=== PATIENT | female | born 1940 | race Hispanic/Latino ===

== ENCOUNTER 2017-05-31 08:18 | Outpatient (CLI) | payer MEDICARE ==
--- NOTE | 2017-05-31 08:52 | XRay Report ---
Standing views of the left knee: Pain. There are spurs involving the medial joint articulation with narrowing of the joint space. The articular margins appear generally preserved. There is a superior patellar spur. The knee appears relatively aligned. The bones are well-mineralized. There is no swelling and no effusion. 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
== END 2017-05-31 08:19 | disposition home or self-care (01) ==
LOC: SPVIMAG 08:18
PROVIDERS: ATTEND Orthopaedic Surgery Sports Medicine
DX: M17.12 Unilateral primary osteoarthritis, left knee (principal)